=== PATIENT | male | born 1980 | race Caucasian/White ===

== ENCOUNTER 2019-02-05 11:37 | Emergency (ER) | payer OTHER ==
--- NOTE | 2019-02-05 11:49 | EDPHY ---
H & P Stated Complaint: vision changes Time Seen by Provider: 02/05/19 11:49 - Personal History Current Tetanus/Diphtheria Vaccine: Unsure Current Tetanus Diphtheria and Acellular Pertussis (TDAP): Unsure - Medical/Surgical History Hx Asthma: No Hx Chronic Respiratory Disease: No Hx Diabetes: No Hx Cardiac Disease: No Hx Renal Disease: No Hx Cirrhosis: No Hx Alcoholism: No Hx HIV/AIDS: No Hx Splenectomy or Spleen Trauma: No Other PMH: denies - Social History Smoking Status: Never smoked Constitutional: Initial Vital Signs Temperature (C) 36.7 C 02/05/19 11:45 Heart Rate 66 02/05/19 11:45 Respiratory Rate 16 02/05/19 11:45 Blood Pressure 154/103 H 02/05/19 11:45 O2 Sat (%) 97 02/05/19 11:45 O2 Delivery Mode Room Air Allergies/Adverse Reactions: No Known Allergies Allergy (Unverified 02/05/19 11:45) Home Medications: Medication Instructions Recorded Finasteride 02/05/19 Flonase Nasal Offerle 02/05/19 Medical Decision Making - Diagnostics Imaging Results: Imaging Impressions Brain MRI 02/05/19 12:20 Impression: 1. Arnold-Chiari type I with a "tight" foramen magnum. No hydrocephalus. Results discussed with Dr. Garcia at 1:54 PM. Imaging: Discussed imaging studies w/ train caller Radiologist, I viewed and interpreted images myself ED Course/Re-evaluation: CHIEF COMPLAINT: Vision changes and headache HISTORY OF PRESENT ILLNESS: The patient is a 38 y/o male complaining of vision changes followed by a headache today. The patient was sitting in meeting when he suddenly couldn't focus on the middle of the computer screen. He initially thought it was sun glare and closed his laptop. He then started losing peripheral vision and was only able to focus on the person he was directly looking at. During this time he also felt like there was a disconnect between his hearing and vision as the person speaking didn't match the words he was hearing. After the visual changes he developed a headache. Due to these symptoms he called his PCP, Dr. Dickinson , and was advised to present to the emergency department. He denies a personal or familial history of these symptoms or migraines. He did drink more alcohol than normal on Tuesday and didn't sleep well last night. No fever, body aches, lightheadedness, chest pain, heart palpitations, shortness of breath, cough, abdominal pain, urinary or bowel complaints, numbness, paresthesias. REVIEW OF SYSTEMS: A comprehensive 10 system review of systems is otherwise negative aside from elements mentioned in the history of present illness and medical decision making. PHYSICAL EXAM: HR, BP, O2 Sat, RR. Temp noted General Appearance: Alert, well hydrated, appropriate, and non-toxic appearing. Head: Atraumatic without scalp tenderness or obvious injury Eyes: Pupils equal, round, sharp, reactive to light and accommodation, EOMI, no trauma, no injection. Ears: Clear bilaterally, no perforation, normal landmarks Nose: Atraumatic, no rhinorrhea, clear. Throat: There is no erythema or exudates, no lesions, normal tonsils, mucus membranes moist. Neck: Supple, 2+ carotid upstroke, nontender, no lymphadenopathy. Respiratory: No retractions, no distress, no wheezes, and no accessory muscle use. Lungs are clear to auscultation bilaterally. Cardiovascular: Regular rate and rhythm, no murmurs, rubs, or gallops. Bilateral carotid, radial, dorsalis pedis, and posterior tibial pulses intact. Good capillary refill all extremities. Gastrointestinal: Abdomen is soft, nontender, non-distended, no masses, no rebound, no guarding, no peritoneal signs. Musculoskeletal: Normal active ROM of all extremities, atraumatic. Neurological: Alert, appropriate, and interactive. The patient has normal DTRs and non-focal cranial nerves, motor, sensory, and cerebellar exam. Skin: No rashes, good turgor, no nodules on palpation. Past medical history: Denies Past surgical history: Denies Family history: Denies Social history: at bedside, employed, lives in [place] DIAGNOSTICS/PROCEDURES/CRITICAL CARE TIME: Brain MRI: type 1 Chiari malformation DIFFERENTIAL DIAGNOSIS: The differential diagnosis for the patient's headache and vision changes included but was not limited to subarachnoid hemorrhage, migraine headache, tension headache and infectious causes such as meningitis, pharyngitis and sinusitis. MEDICAL DECISION MAKING: The patient is a 38 y/o male complaining of vision changes followed by a headache today. The patient was sitting in meeting when he suddenly couldn't focus on the middle of the computer screen. He then started losing peripheral vision and felt like there was a disconnect between his hearing and vision as the person speaking didn't match the words he was hearing. After the visual changes he developed a headache. On exam he has a normal exam including sharp pupil discs and a normal neuro exam. Patient most likely had visual scotomata prior to the onset of a migraine. Migraine cocktail administered including Reglan, Toradol, and Solu-Medrol. If his migraine does not improve after medication he will need further imaging work up. 1219: Reassessed patient, he is starting to feel better. I have discussed the risks and benefits associated with having imaging to further evaluate his symptoms. He is comfortable with plan for further imaging. Brain MRI ordered. 1355: I spoke with Yudith radiologist, who reports that the patient has a type 1 Chiari malformation. Patient will need to follow up with a neurosurgeon. 1400: Reassessed patient and discussed imaging findings. I have advised him to follow up with a neurosurgeon for the Chiari malformation. Return precautions provided; patient is comfortable with this plan. - Data Points Laboratory Results: 02/05/19 12:05 POC Hgb 15.6 gm/dL gm/dL (13.7-17.5) POC Hct 46 % % (40-51) POC Sodium 143 mEq/L mEq/L (135-145) POC Potassium 4.0 mEq/L mEq/L (3.3-5.0) POC Chloride 105 mEq/L mEq/L (97-110) POC Total CO2 24 mEq/L mEq/L (22-31) POC BUN 12 mg/dL mg/dL (7-23) POC Creatinine 0.9 mg/dL mg/dL (0.7-1.3) POC Glucose 96 mg/dL mg/dL (70-100) Medications Given: Discontinued Medications Ketorolac Tromethamine (Toradol) 30 mg IVP EDNOW ONE Stop: 02/05/19 11:57 Last Admin: 02/05/19 12:07 Dose: 30 mg Methylprednisolone Sodium Succinate (Solu-Medrol) 125 mg IVP EDNOW ONE Stop: 02/05/19 11:57 Last Admin: 02/05/19 12:10 Dose: 125 mg Metoclopramide HCl (Reglan Injection) 10 mg IVP EDNOW ONE Stop: 02/05/19 11:57 Last Admin: 02/05/19 12:10 Dose: 10 mg Point of Care Test Results: Chemistry 02/05/19 12:05 POC Sodium 143 mEq/L mEq/L (135-145) POC Potassium 4.0 mEq/L mEq/L (3.3-5.0) POC Chloride 105 mEq/L mEq/L (97-110) POC Total CO2 24 mEq/L mEq/L (22-31) POC BUN 12 mg/dL mg/dL (7-23) POC Creatinine 0.9 mg/dL mg/dL (0.7-1.3) POC Glucose 96 mg/dL mg/dL (70-100) ISTAT H&H 02/05/19 12:05 POC Hgb 15.6 gm/dL gm/dL (13.7-17.5) POC Hct 46 % % (40-51) Departure - Departure Disposition: Home, Routine, Self-Care Clinical Impression: Chiari I malformation Condition: Good Instructions: Acute Headache (ED), Chiari Malformation (DC) Additional Instructions: 1. Follow up with a neurosurgeon regarding the type I Chiari malformation detected on the brain MRI. 2. Return to the emergency department immediately for recurrence of headache, nausea, vomiting, numbness, weakness, neck pain, fever or other concerns. Referrals: Clinton Dickinson MD [Primary Care Provider] - As per Instructions Scot Packer MD [Medical Doctor] - As per Instructions Report Scribed for: Jacob Garcia Report Scribed by: Casie Marie Date of Report: 02/05/19 Time of Report: 11:51
[2019-02-05] MEDS ORDERED: methylPREDNISolone SOD SUCC 125 MG/2 ML VIAL IVP ONE (11:56)
[2019-02-05] MEDS ORDERED: KETOROLAC 30 MG/1 ML SDV IVP ONE (11:56)
[2019-02-05] MEDS ORDERED: METOCLOPRAMIDE 10 MG/2 ML VIAL IVP ONE (11:56)
[2019-02-05] MEDS ORDERED: GADOBUTROL 10 ML VIAL IVP ONE (12:59)
[2019-02-05 14:21] VITALS: BP 148/98
== END 2019-02-05 14:19 | disposition home or self-care (01) ==
DX: H53.9 Unspecified visual disturbance (principal); G93.5 Compression of brain
CPT/HCPCS: 82435-PO; 82565-PO; 82947-PO; 84132-PO; 84295-PO; 84520-PO; 85014-ER; 96374; A9585; J1885; J2765; J2930